=== PATIENT | female | born 1985 | race Two or more races ===

== ENCOUNTER 2024-11-08 08:57 | Emergency (ER) | payer MEDICAID, SELFPAY ==
[2024-11-08 08:58] VITALS: BMI 30.9
[2024-11-08 09:07] VITALS: BP 130/88; PULSE 99; RESP 16; TEMP 37; O2SAT 99; BMI 32.3
[2024-11-08 09:51] LABS: Collection Type, Urine Clean Catch
[2024-11-08 10:10] LABS: Basophils % (Auto) 0 % (0-2.5); Eosinophils # (Auto) 0.1 Thou/mm3 (0.0-0.5); Eosinophils % (Auto) 1 % (0-10); Hematocrit 38.6 % (36.0-46.0); Hemoglobin 12.7 g/dL (12.0-16.0); Immature Granulocytes % (Auto) 0 % (0-0); Immature Granulocytes Auto 0.02 Thou/mm3 (0.00-0.00); Lymphocytes # (Auto) 0.9 Thou/mm3 (1.0-4.8); Lymphocytes % (Auto) 17 % (10-50); Mean Corpuscular HGB Conc 32.9 g/dl (31.0-37.0); Mean Corpuscular Hemoglobin 27.7 pg (25.0-35.0); Mean Corpuscular Volume 84 fL (80-100); Monocytes # (Auto) 0.4 Thou/mm3 (0.0-0.8); Monocytes % (Auto) 8 % (0-12); Neutrophils # (Auto) 4.1 Thou/mm3 (1.8-7.7); Neutrophils % (Auto) 74 % (37-80); Nucleated Red Blood Cell % 0 /100 WBC (0); Platelet Count 225 Thou/mm3 (140-440); RDW Standard Deviation 41.8 fL (36.4-46.3); Red Blood Count 4.58 Miln/mm3 (4.00-5.20); White Blood Count 5.5 Thou/mm3 (3.6-11.0)
[2024-11-08 10:14] LABS: Alanine Aminotransferase 26 U/L (10-49); Albumin, Serum 4.8 gm/dL (3.5-5.0); Albumin/Globulin Ratio 1.8 (1.2-2.2); Alkaline Phosphatase 90 U/L (46-116); Anion Gap 4 (7-16); Aspartate Amino Transferase 39 U/L (0-34); BUN/Creatinine Ratio 11 Ratio (12-20); Bilirubin,Total 0.6 mg/dL (0.3-1.2); Blood Urea Nitrogen 9 mg/dL (9-23); Calcium 8.9 mg/dL (8.3-10.6); Calcium (Corrected) 8.9 mg/dL (8.5-10.1); Carbon Dioxide 27.7 mMol/L (20.0-31.0); Chloride 105 mMol/L (98-107); Creatinine (Component) 0.8 mg/dL (0.6-1.3); Estimated Creatinine Clearance 99.9 mL/min (>60); Globulin 2.7 gm/dL (2.3-3.5); Glucose 102 mg/dL (74-106); Lipase 42 U/L (12-53); Osmolality,Calculated 272 (275-295); Potassium 4.6 mMol/L (3.4-5.1); Sodium 137 mMol/L (136-145); Total Protein 7.5 gm/dL (5.7-8.2); eGFR > 60 See Note
[2024-11-08 10:16] LABS: HCG Qualitative,Urine Negative
[2024-11-08 10:45] LABS: Bacteria,Urine 2+; Bilirubin,Urine Negative (Negative); Blood,Urine 3+ (Negative); Color,Urine Yellow (Lt Yel-Yel); Culture Indicated,Urine Contaminated; Glucose, Urine Negative (Negative); Ketones,Urine Negative (Negative); Leukocyte Esterase,Urine Positive (Negative); Nitrite,Urine Positive (Negative); Protein,Urine 1+ (Neg - Trace); RBC,Urine 15 /hpf (0-3); Specific Gravity,Urine 1.025 (1.001-1.035); Squamous Epithelial Cell,Urine 51 /hpf (0-5); Urobilinogen,Urine Negative mg/dL (0.0-1.0); WBC,Urine 82 /hpf (0-5)
[2024-11-08 10:46] LABS: Clarity,Urine Turbid (Clear/Hazy)
--- NOTE | 2024-11-08 10:49 | EDNOTE_ITS ---
ED General RME/HPI General Chief complaint: Flu Like Symptoms Stated complaint: ESPINOZA/BODY ACHES/BACK AND ABD PAIN FOR 5 DAYS Time Seen by Provider: 11/08/24 09:03 Arrival date/time: 11/08/24 08:57 38-year-old female presents emergency department complains of headache, body aches, abdominal pain chills and bone pain ongoing for the last 4 days patient reports no vomiting Limitations: no limitations Related Data Previous Rx's ?Medication ?Instructions ?Recorded nitrofurantoin 100 mg PO BID #20 caps 03/18/20 monohydrate/macrocrystals 100 mg capsule (Macrobid) acetaminophen 500 mg tablet 1,000 mg (2 x 500 mg) PO QID PRN 02/09/21 (Tylenol Extra Strength) fever or pain #30 tabs ciprofloxacin HCl 500 mg tablet 500 mg PO BID 7 days #14 tabs 11/08/24 ibuprofen 800 mg tablet 800 mg PO TID PRN pain #30 tabs 11/08/24 Allergies Allergy/AdvReac Type Severity Reaction Status Date / Time No Known Allergies Allergy Unverified 11/08/24 09:02 Review of Systems Review of Systems Systems Reviewed: All systems reviewed, normal except as documented Constitutional Constitutional: Reports system reviewed and no additional complaints, except as documented, Reports body ache(s), Reports fatigue, Denies fever(s) and Reports headache(s) Eyes Eyes: Reports system reviewed and no additional complaints, except as documented and Denies blurry vision ENT Ears, Nose, Mouth, and Throat: Reports system reviewed and no additional complaints, except as documented, Reports headache(s), Reports nasal congestion and Reports nasal discharge Cardiovascular Cardiovascular: Reports system reviewed and no additional complaints, except as documented, Denies chest pain and Denies dyspnea Respiratory Respiratory: Reports system reviewed and no additional complaints, except as documented, Denies chest congestion, Denies cough and Denies dyspnea Gastrointestinal Gastrointestinal: Reports system reviewed and no additional complaints, except as documented, Reports abdominal pain, Denies loose stools, Reports nausea and Denies vomiting Integumentary/Breasts Skin/Breast: Reports system reviewed and no additional complaints, except as documented and Denies rash Neurologic Neurologic: Reports system reviewed and no additional complaints, except as documented, Reports as per HPI and Reports headache(s) Endocrine Endocrine: Reports fatigue Past Medical History Past Medical History CARDIAC: Negative Cardiac Disorders or Congestive Heart Failure RESPIRATORY: Negative Chronic Obstructive Pulmonary Disease (COPD) GASTROINTESTINAL: Negative Gastrointestinal Disorders, Hepatitis or Colorectal Cancer GENITOURINARY: Negative Genitourinary Disorders, Renal Disease or Prostate Cancer REPRODUCTIVE: Negative Breast Cancer or Testicular Cancer MUSCULOSKELETAL: Negative Musculoskeletal Disorders or Bone Cancer ENDOCRINE: Negative Endocrine Disorders, Diabetes Mellitus Type 1 or Diabetes Mellitus Type 2 HEMATOLOGIC: Negative Blood Disorders OTHER HISTORY: Positive Hospitalization; Negative Autoimmune Disease, Blood Transfusions, Blood Transfusion Reaction, Anesthesia Reactions, Organ Transplant, Chemotherapy, Radiation Therapy, Hyperbaric Therapy, Human Immunodeficiency Virus (HIV), Chicken Pox, Measles, Mumps, Rubella (Khmer Measles), Pertussis, Clostridium Difficile, Breast Cancer, Cervical Cancer, Colorectal Cancer, Lung Cancer, Ovarian Cancer, Prostate Cancer or Testicular Cancer Family History FAMILY HISTORY: Positive Family Cancer; Negative Family Psychiatric Problems, Family Respiratory Disorders, Family Cardiac Disorders, Family Gastrointestinal Problems, Family Surgery or Family Anesthesia Reaction Surgical History SURGICAL: Negative Cardiac Surgery, Endocrine Surgery, Ear Surgery, Section or Organ Transplant Social History SMOKING STATUS: Never smoker SUBSTANCE USE: does not use ED Exam General Limitations: Present no limitations General appearance: Present alert and in no apparent distress Head Head exam: Present atraumatic Eye Eye exam: Present normal appearance, PERRL and EOMI ENT ENT exam: Present normal exam, normal oropharynx and mucous membranes moist Neck Neck exam: Present normal inspection, full ROM and trachea midline Chest Chest inspection: Present normal inspection and symmetric chest wall rise Respiratory Respiratory exam: Present normal lung sounds bilaterally Cardiovascular Cardiovascular exam: Present regular rate, normal rhythm and normal heart sounds Abdominal Exam Abdominal exam: Present soft and normal bowel sounds; Absent distention, tenderness, guarding, rebound, rigidity, Lainez's sign or tenderness at McBurney's Point Abdominal tenderness: Absent RUQ or RLQ Extremities Exam Extremities exam: Present normal inspection and full ROM Back Exam Back exam: Present normal inspection and full ROM Neurological Exam Neurological exam: Present alert, oriented X3 and CN II-XII intact Psychiatric Psychiatric exam: Present normal affect and normal mood Skin Skin exam: Present warm, dry, intact and normal color Course Quality Measures none Orders Category Date Time Status Bedside Influenza A&B Antigen Test NOW Care 11/08/24 09:20 Completed CBC Stat Lab 11/08/24 09:40 Completed Comprehensive Metabolic Panel Stat Lab 11/08/24 09:40 Completed HCG Qualitative,Urine Stat Lab 11/08/24 09:35 Completed Lipase Stat Lab 11/08/24 09:40 Completed UA, C/S IF [Urinalysis, C/S if Indicated] Stat Lab 11/08/24 09:35 Completed Ibuprofen Tab [Motrin Tab] Med 11/08/24 10:50 Discontinued 800 mg PO X1 ONE Lidocaine 1% 20 ml [Xylocaine 1% 20 ML] Med 11/08/24 10:50 Discontinued 2.1 ml INFL X1 ONE cefTRIAXone [Rocephin] Med 11/08/24 10:50 Discontinued 1,000 mg IM X1 ONE Vital Signs Vital signs: Vital Signs Temperature 98.6 F 11/08/24 09:07 Pulse Rate 99 11/08/24 09:07 Respiratory Rate 16 11/08/24 09:07 Blood Pressure 130/88 H 11/08/24 09:07 Pulse Oximetry (%) 99 11/08/24 09:07 Oxygen Delivery Method Room Air 11/08/24 09:07 O2 saturation 99% room air within normal limits [facility] Patient data External records reviewed:: [facility] previous records Clinical information provided by:: patient Social determinants that could affect healthcare access:: none Patient has the following chronic illnesses:: None How is presenting disease/condition affected by chronic disease/condition?: no chronic disease Evaluation data The following diagnostics were reviewed and interpreted by me:: lab results and radiology exam(s) Lab and/or radiology exams considered but not ordered:: Labs radiology obtained Interpretation Summary: Reviewed by me Medications Medications considered but not ordered:: Given Medication administrations:: Medication Administration History Discontinued Medications Ceftriaxone Sodium (Ceftriaxone Sod Inj 1,000 Mg Vial) 1,000 mg IM X1 ONE Stop: 11/08/24 10:51 Last Admin: 11/08/24 11:03 Dose: 1,000 mg Documented By: JAYLIN Ibuprofen (Ibuprofen Tab 400 Mg Tablet) 800 mg PO X1 ONE Stop: 11/08/24 10:51 Last Admin: 11/08/24 11:03 Dose: 800 mg Documented By: Admin: 11/08/24 11:02 Dose: 400 mg Documented By: JAYLIN Lidocaine HCl (Lidocaine Hcl 1% 20 Ml Vial) 2.1 ml INFL X1 ONE Stop: 11/08/24 10:51 Last Admin: 11/08/24 11:04 Dose: 2.1 ml Documented By: JAYLIN Given Consultations Consultation(s) initiated? (list below): No Diagnosis Differential Diagnosis ED Complaint MDM: URI, viral illness, UTI, influenza Most likely diagnosis given after review of the tests above:: Viral illness Admission Indicated Admission indicated?: not indicated Explain why admission is indicated or not indicated:: No criteria Admission Request Was there a request for admission?: No Disposition Plan Disposition Plan: Discharge Discharge Attestation Discharge Attestation: The patient and all family members were given an opportunity to ask questions and understood the discharge instructions. Discharge instructions specifically effects, indications for sooner follow up or return to the emergency department, and the expected course of current diagnosis. Patient condition: Stable Medical Decision Making MDM Narrative MDM Narrative: 38-year-old female presents emergency department complains of headache, body aches, abdominal pain chills and bone pain ongoing for the last 4 days patient reports no vomiting On exam patient hemodynamically stable patient does not appear ill or toxic Lab work and CT scan obtained no acute emergent findings noted Patient discharged home in no distress to follow-up with primary care doctor in the next 24 to 48 hours and for any worsening symptoms to return to the ER immediately Differential Diagnosis Differential Diagnosis: URI, viral illness, UTI, influenza Medical Records Medical records reviewed: Yes I reviewed the patient's medical records. Lab Data Lab results reviewed: Yes I reviewed the patient's lab results. 11/08/24 09:40 11/08/24 09:40 Labs: Lab Results 11/08/24 11/08/24 Range/Units 09:35 09:40 WBC 5.5 (3.6-11.0) Thou/mm3 RBC 4.58 (4.00-5.20) Miln/mm3 Hgb 12.7 (12.0-16.0) g/dL Hct 38.6 (36.0-46.0) % MCV 84 (80-100) fL MCH 27.7 (25.0-35.0) pg MCHC 32.9 (31.0-37.0) g/dl RDW Std Deviation 41.8 (36.4-46.3) fL Plt Count 225 (140-440) Thou/mm3 Neut % (Auto) 74 (37-80) % Lymph % (Auto) 17 (10-50) % [place] % (Auto) 8 (0-12) % Eos % (Auto) 1 (0-10) % Baso % (Auto) 0 (0-2.5) % Neut # (Auto) 4.1 (1.8-7.7) Thou/mm3 Lymph # (Auto) 0.9 L (1.0-4.8) Thou/mm3 [place] # (Auto) 0.4 (0.0-0.8) Thou/mm3 Eos # (Auto) 0.1 (0.0-0.5) Thou/mm3 Baso # (Auto) 0.0 (0.0-0.2) Thou/mm3 Immature Gran # (Auto) 0.02 H (0.00-0.00) Thou/mm3 Absolute Nucleated RBC 0.00 (0.00-0.00) Thou/mm3 Immature Gran % 0 (0-0) % Nucleated RBC % 0 (0) /100 WBC Sodium 137 (136-145) mMol/L Potassium 4.6 (3.4-5.1) mMol/L Chloride 105 (98-107) mMol/L Carbon Dioxide 27.7 (20.0-31.0) mMol/L Anion Gap 4 L (7-16) BUN 9 (9-23) mg/dL Creatinine 0.8 (0.6-1.3) mg/dL Estim Creat Clear Calc 99.9 (>60) mL/min eGFR > 60 (60 - ) See Note BUN/Creatinine Ratio 11 L (12-20) Ratio Glucose 102 (74-106) mg/dL Calculated Osmolality 272 L (275-295) Calcium 8.9 (8.3-10.6) mg/dL Corrected Calcium 8.9 (8.5-10.1) mg/dL Total Bilirubin 0.6 (0.3-1.2) mg/dL AST 39 H (0-34) U/L ALT 26 (10-49) U/L Alkaline Phosphatase 90 (46-116) U/L Total Protein 7.5 (5.7-8.2) gm/dL Albumin 4.8 (3.5-5.0) gm/dL Globulin 2.7 (2.3-3.5) gm/dL Albumin/Globulin Ratio 1.8 (1.2-2.2) Lipase 42 (12-53) U/L Ur Collection Type Clean Catch Urine Color Yellow (Lt Yel-Yel) Urine Clarity Turbid A (Clear/Hazy) Urine pH 6.0 (5.0-7.0) Ur Specific Rex 1.025 (1.001-1.035) Urine Protein 1+ A (Neg - Trace) Urine Glucose (UA) Negative (Negative) Urine Ketones Negative (Negative) Urine Blood 3+ A (Negative) Urine Nitrite Positive (Negative) Urine Bilirubin Negative (Negative) Urine Urobilinogen (Auto) Negative (0.0-1.0) mg/dL Ur Leukocyte Esterase Positive (Negative) Urine RBC 15 H (0-3) /hpf Urine WBC 82 H (0-5) /hpf Ur Squamous Epith Cells 51 H (0-5) /hpf Urine Bacteria 2+ A (None) Ur Culture Indicated? Contaminated Urine HCG, Qual Negative Discharge Plan Plan Patient Disposition: HOME (Self Care) Disposition Comment: Stable Prescriptions/Referrals Prescriptions/Med Rec: New ibuprofen 800 mg tablet 800 mg PO TID PRN (Reason: pain) Qty: 30 0RF ciprofloxacin HCl 500 mg tablet 500 mg PO BID 7 Days Qty: 14 0RF No Action nitrofurantoin monohyd/m-cryst [Macrobid] 100 mg capsule 100 mg PO BID Qty: 20 0RF Rx Instructions: must administer with a meal/food acetaminophen [Tylenol Extra Strength] 500 mg tablet 1,000 mg PO QID PRN (Reason: fever or pain) Qty: 30 0RF Referrals: Rose Narayan MD [Primary Care Provider] - 11/10/24 Problem List Clinical Impression: UTI (urinary tract infection) Patient/Caregiver Discharge Instructions Education Materials: When to Use Antibiotics Additional Instructions: Please follow up with your primary care doctor in the next 24-48hrs for any worsening symptoms return here immediately Print Language: Nigerien Stand Alone Forms: Laverne Award Info., Work/School Release, Patient Portal Info Letter PA/MARLEN Supervising Physician PA/MARLEN Supervising Physician: Dr. Green
[2024-11-08 11:02] VITALS: TEMP 37
[2024-11-08] MEDS: IBUPROFEN TAB 400 MG TABLET 800 MG PO ×2 (11:02→11:03)
[2024-11-08] MEDS: cefTRIAXone SOD INJ 1,000 MG VIAL 1000 MG IM (11:03)
[2024-11-08] MEDS: LIDOCAINE HCL 1% 20 ML VIAL 2.1 ML INFL (11:04)
== END 2024-11-08 11:19 | disposition home or self-care (01) ==
PROVIDERS: Nurse Practitioner Primary Care; Emergency Provider Emergency Medicine; PCP Internal Medicine
DX: N39.0 Urinary tract infection, site not specified (principal)
CPT/HCPCS: 36415; 80053; 81001; 81025; 83690; 85025; 87400; 96372; 99283; J0696; J3490; A9270

== ENCOUNTER 2024-12-01 07:41 | Emergency (ER) | payer MEDICAID, SELFPAY ==
[2024-12-01 07:42] VITALS: BMI 31.8
[2024-12-01 08:20] VITALS: BP 132/84; PULSE 88; RESP 18; TEMP 36.7; O2SAT 99; BMI 34.0
--- NOTE | 2024-12-01 08:21 | XR_ITS ---
Examination: PA lateral chest 2 views TECHNIQUE: Upright PA lateral chest 2 views Exam date and time: December 01 2024 0842 hours INDICATIONS: Coughing beginning 2 weeks ago. FINDINGS: Normal heart size. Lungs are clear. The osseous structures are intact IMPRESSION: No active disease
--- NOTE | 2024-12-01 11:15 | EDNOTE_ITS ---
Upper Respiratory Inf. RME/HPI General Chief Complaint: Flu Like Symptoms Stated Complaint: COUGH, HEADACHE, BACK PAIN Time Seen by Provider: 12/01/24 07:49 Arrival date/time: 12/01/24 07:41 39-year-old female presents emergency department complains of cough, congestion, body aches and fever patient for symptoms ongoing for last few days there are no other associated symptoms or aggravating factors no other modifying factors, patient denies taking medication before coming to ER today Limitations: no limitations Related Data Previous Rx's ?Medication ?Instructions ?Recorded nitrofurantoin 100 mg PO BID #20 caps 03/18 monohydrate/macrocrystals 100 mg capsule (Macrobid) acetaminophen 500 mg tablet 1,000 mg (2 x 500 mg) PO Q ID PRN 02/09/21 (Tylenol Extra Strength) fever or pain #30 tabs ibuprofen 800 mg tablet 800 mg PO TID PRN pain #30 t abs 11/08/24 benzonatate 100 mg capsule 100 mg PO TID #14 caps 01/20 ibuprofen 600 mg tablet 600 mg PO Q6H #30 tabs 12/01 Allergies Allergy/AdvReac Type Severity Reaction Status Date / Time No Known Allergies Allergy Verified 12/01/24 07:46 Review of Systems Review of Systems Systems Reviewed: All systems reviewed, normal except as documented Constitutional Constitutional: Reports system reviewed and no additional complaints, except as documented, Reports body ache(s), Reports chills, Reports fever(s) and Reports headache(s) Eyes Eyes: Reports system reviewed and no additional complaints, except as documented and Denies blurry vision ENT Ears, Nose, Mouth, and Throat: Reports system reviewed and no additional complaints, except as documented, Reports headache(s), Denies nasal congestion and Reports nasal discharge Cardiovascular Cardiovascular: Reports system reviewed and no additional complaints, except as documented, Denies chest pain and Denies dyspnea Respiratory Respiratory: Reports system reviewed and no additional complaints, except as documented, Denies chest congestion, Denies cough and Denies dyspnea Gastrointestinal Gastrointestinal: Reports system reviewed and no additional complaints, except as documented and Denies abdominal pain Integumentary/Breasts Skin/Breast: Reports system reviewed and no additional complaints, except as documented and Denies rash Neurologic Neurologic: Reports system reviewed and no additional complaints, except as documented, Reports as per HPI and Reports headache(s) Past Medical History Past Medical History NEUROLOGIC: Negative Neurological Disorders CARDIAC: Negative Cardiac Disorders or Congestive Heart Failure RESPIRATORY: Negative Chronic Obstructive Pulmonary Disease (COPD) GASTROINTESTINAL: Negative Gastrointestinal Disorders, Hepatitis or Colorectal Cancer GENITOURINARY: Negative Genitourinary Disorders, Renal Disease or Prostate Cancer REPRODUCTIVE: Negative Breast Cancer or Testicular Cancer MUSCULOSKELETAL: Negative Musculoskeletal Disorders or Bone Cancer ENDOCRINE: Negative Endocrine Disorders, Diabetes Mellitus Type 1 or Diabetes Mellitus Type 2 HEMATOLOGIC: Negative Blood Disorders OTHER HISTORY: Positive Hospitalization; Negative Autoimmune Disease, Blood Transfusions, Blood Transfusion Reaction, Anesthesia Reactions, Organ Transplant, Chemotherapy, Radiation Therapy, Hyperbaric Therapy, Human Immunodeficiency Virus (HIV), Chicken Pox, Measles, Mumps, Rubella (Cymro Measles), Pertussis, Clostridium Difficile, Breast Cancer, Cervical Cancer, Colorectal Cancer, Lung Cancer, Ovarian Cancer, Prostate Cancer or Testicular Cancer Family History FAMILY HISTORY: Positive Family Cancer; Negative Family Psychiatric Problems, Family Respiratory Disorders, Family Cardiac Disorders, Family Gastrointestinal Problems, Family Surgery or Family Anesthesia Reaction Surgical History SURGICAL: Negative Cardiac Surgery, Endocrine Surgery, Ear Surgery, Section or Organ Transplant Social History SMOKING STATUS: Never smoker SUBSTANCE USE: does not use ED Exam General Limitations: Present no limitations General appearance: Present alert and in no apparent distress Head Head exam: Present atraumatic, normocephalic and normal inspection Eye Eye exam: Present normal appearance, PERRL and EOMI; Absent conjunctival injection ENT ENT exam: Present normal exam, normal oropharynx and mucous membranes moist Neck Neck exam: Present normal inspection, full ROM and trachea midline Chest Chest inspection: Present normal inspection and symmetric chest wall rise Respiratory Respiratory exam: Present normal lung sounds bilaterally; Absent respiratory distress Cardiovascular Cardiovascular exam: Present regular rate, normal rhythm and normal heart sounds Abdominal Exam Abdominal exam: Present soft and normal bowel sounds; Absent distention, tenderness, guarding, rebound or rigidity Abdominal tenderness: Absent RLQ Extremities Exam Extremities exam: Present normal inspection and full ROM Back Exam Back exam: Present normal inspection and full ROM Neurological Exam Neurological exam: Present alert, oriented X3 and CN II-XII intact Psychiatric Psychiatric exam: Present normal affect and normal mood Skin Skin exam: Present warm, dry, intact and normal color Course Quality Measures none Orders Category Date Time Status Bedside Influenza A&B Antigen Test NOW Care 12/01/24 08:21 Completed XR chest 2V Stat Exams 12/01/24 08:21 Completed Vital Signs Vital signs: Vital Signs Temperature 98.1 F 12/01/24 08:20 Pulse Rate 88 12/01/24 08:20 Respiratory Rate 18 12/01/24 08:20 Blood Pressure 132/84 H 12/01/24 08:20 Pulse Oximetry (%) 99 12/01/24 08:20 Oxygen Delivery Method Room Air 12/01/24 08:20 O2 saturation 99% room air within normal limits Upper Respiratory Infection MDM Narrative MDM Narrative:: 39-year-old female presents emergency department complains of cough, congestion, body aches and fever patient for symptoms ongoing for last few days there are no other associated symptoms or aggravating factors no other modifying factors, patient denies taking medication before coming to ER today On exam patient does not appear ill or toxic patient reports no significant medical problems patient reports not Patient symptoms highly consistent with viral illness I suspect patient has flu Patient checked for influenza came back negative Chest x-ray obtained no acute medical trace noted Symptoms highly consistent with viral illness Patient discharged home in no distress to follow-up with primary care doctor in the next 24 to 48 hours and for any worsening symptoms to return to the ER immediately Patient data External records reviewed:: [facility] previous records Clinical information provided by:: patient Social determinants that could affect healthcare access:: none Patient has the following chronic illnesses:: None How is presenting disease/condition affected by chronic disease/condition?: no chronic disease Evaluation data The following diagnostics were reviewed and interpreted by me:: lab results and radiology exam(s) Lab and/or radiology exams considered but not ordered:: Labs radiology obtain Interpretation Summary: Reviewed by me Medications / Prescriptions Medications or Prescriptions considered but not ordered:: Given Medication administrations:: Given Consultations Consultation(s) initiated? (list below): No Diagnosis Upper Respiratory Differential Diagnosis: upper respiratory infection, sinusitis, viral infection and bronchitis Most likely diagnosis given after review of the tests above:: URI Admission Indicated Admission indicated?: not indicated Admission Request Was there a request for admission?: No Disposition Plan Disposition Plan: Discharge Discharge Attestation Discharge Attestation: The patient and all family members were given an opportunity to ask questions and understood the discharge instructions. Discharge instructions specifically effects, indications for sooner follow up or return to the emergency department, and the expected course of current diagnosis. Patient condition: Stable Discharge Plan Plan Patient Disposition: HOME (Self Care) Disposition Comment: Stable Prescriptions/Referrals Prescriptions/Med Rec: New benzonatate 100 mg capsule 100 mg PO TID Qty: 14 0RF ibuprofen 600 mg tablet 600 mg PO Q6H Qty: 30 0RF No Action nitrofurantoin monohyd/m-cryst [Macrobid] 100 mg capsule 100 mg PO BID Qty: 20 0RF Rx Instructions: must administer with a meal/food acetaminophen [Tylenol Extra Strength] 500 mg tablet 1,000 mg PO QID PRN (Reason: fever or pain) Qty: 30 0RF ibuprofen 800 mg tablet 800 mg PO TID PRN (Reason: pain) Qty: 30 0RF Referrals: Rose Narayan MD [Primary Care Provider] - 12/02/24 Problem List Clinical Impression: URI (upper respiratory infection) Patient/Caregiver Discharge Instructions Education Materials: ED URI, Viral, No Abx (Adult) Additional Instructions: Please follow up with your primary care doctor in the next 24-48hrs for any worsening symptoms return here immediately Print Language: South African Stand Alone Forms: Laverne Award Info., Patient Portal Info Letter PA/CAUSTIC PURIFICATION OPERATOR Supervising Physician PA/CAUSTIC PURIFICATION OPERATOR Supervising Physician: Dr. Sargent
== END 2024-12-01 12:12 | disposition home or self-care (01) ==
PROVIDERS: Emergency Provider Emergency Medicine; PCP Internal Medicine
DX: J06.9 Acute upper respiratory infection, unspecified (principal)
CPT/HCPCS: 71046; 87400; 99283

== ENCOUNTER → 2025-02-11 | Outpatient (CLI) | payer MEDICAID, SELFPAY ==
--- NOTE | 2025-02-11 15:00 | XR_ITS ---
Examination: Screening digital mammography, bilateral Computer aided detection 3-D breast Tomosynthesis, bilateral Date and time of exam: February 11, 2025 1547 hours No priors Indication: Screening Technique: Nonmagnified MLO, CC views of the breasts to been obtained, reconstructed from 3-D Tomosynthesis images. R2 computer aided detection program utilized for evaluation of suspicious masses and/or abnormal calcifications. 3-D Tomosynthesis images obtained. Findings: The breasts are heterogeneously dense, which may obscure small masses 10 mm focal asymmetry upper inner right breast Benign calcifications Impression: BI-RADS Category 0: Incomplete: Need additional imaging evaluation Recommend follow-up spot tomographic views 10 mm focal asymmetry upper inner right breast, bilateral breast sonography to complete the workup
== END | disposition home or self-care (01) ==
PROVIDERS: PCP Nurse Practitioner Primary Care; Referring Provider Nurse Practitioner Primary Care; Visit Provider Nurse Practitioner Primary Care
DX: Z12.31 Encounter for screening mammogram for malignant neoplasm of breast (principal); R92.8 Other abnormal and inconclusive findings on diagnostic imaging of breast; N64.89 Other specified disorders of breast
CPT/HCPCS: 77063; 77067

== ENCOUNTER 2025-04-11 07:43 | Emergency (ER) | payer MEDICAID, SELFPAY ==
--- NOTE | 2025-04-11 | XR_ITS ---
Exam: MRI knee without contrast, right complete Date and time of exam: April 11, 2025 12:31 PM Indications: Injury to the knee 2 weeks ago knee pain Technique: Multiple axial, coronal, and sagittal sections on the knee have been obtained. T2-Weighted sagittal, fat-suppressed images, TR 3,500, TE 62, T2 weighted coronal fat-saturated images, TR 3,500, TE 62 Proton density sagittal sections, TR 1800, TE 31. T-1 weighted coronal images, TR 524, TE 13.0 Findings: Medial meniscus anterior horn intact Medial meniscus, body intact Posterior horn medial meniscus intact Lateral meniscus anterior horn is intact Lateral meniscus, body is intact Posterior horn lateral meniscus is intact Anterior cruciate ligament high grade sprain Posterior cruciate ligament appears intact. Knee effusion is mild Quadriceps and patellar tendons appear intact. There is no evidence of tendinosis. Inflammatory change or fracture of Hoffa's fat pad is not seen. Medial patellar facet demonstrates mild thinning. Lateral patellar facet cartilage demonstrates mild thinning. Trochlear cartilage demonstrates mild thinning. Marrow signal adequate Medial collateral ligament appears intact. No meniscocapsular separation is seen. Illiotibial band and fibular collateral ligament are intact. Biceps femoris tendons appear intact. Medial femoral condylar articular cartilage demonstrates mild thinning. Lateral femoral condylar articular cartilage demonstrates mild thinning. Tibial plateau cartilage demonstrates mild thinning. Impression: High grade sprain anterior cruciate ligament
[2025-04-11 08:27] VITALS: BP 157/92; PULSE 72; RESP 18; TEMP 37.1; O2SAT 98; BMI 31.8
--- NOTE | 2025-04-11 09:11 | PD.EDLOWEX ---
Lower Extremity Injury RME/HPI General Chief Complaint: Extremity Injury, Lower Stated Complaint: Right knee pain X 2weeks Time Seen by Provider: 04/11/25 07:57 Source: patient Arrival date/time: 04/11/25 07:43 Limitations: language barrier RME / HPI RME / HPI Narrative: 39-year-old female presents for evaluation of right knee pain x 2 weeks. She reports spontaneous onset of sharp knee pain that started in her medial right knee while walking and radiates to her lateral and posterior knee. She reports sharp pains will occur at rest. She denies prior trauma and surgery to her right knee. Denies history of similar symptoms. Denies chest pain, fever, shortness of breath, cough, swelling, skin changes. MD complaint: knee injury Onset (ago): week(s) Type of Injury: unknown Place: home Exacerbating factors: weight bearing and movement Context: walking Other symptoms: none Related Data Previous Rx's ?Medication ?Instructions ?Recorded nitrofurantoin 100 mg PO BID #20 caps 03/18/20 monohydrate/macrocrystals 100 mg capsule (Macrobid) acetaminophen 500 mg tablet 1,000 mg (2 x 500 mg) PO QID PRN 02/09/21 (Tylenol Extra Strength) fever or pain #30 tabs ibuprofen 800 mg tablet 800 mg PO TID PRN pain #30 tabs 11/08/24 benzonatate 100 mg capsule 100 mg PO TID #14 caps 12/01/24 ibuprofen 600 mg tablet 600 mg PO Q6H #30 tabs 12/01/24 ibuprofen 800 mg tablet 800 mg PO Q8H PRN pain #30 tabs 04/11/25 Allergies Allergy/AdvReac Type Severity Reaction Status Date / Time No Known Allergies Allergy Verified 04/11/25 07:48 Review of Systems Constitutional Constitutional: Denies chills, Denies fever(s), Denies headache(s) and Denies weakness Eyes Eyes: Denies blurry vision and Denies change in vision ENT Ears, Nose, Mouth, and Throat: Denies headache(s), Denies neck pain and Denies vertigo Cardiovascular Cardiovascular: Denies chest pain, Denies chest pain at rest, Denies dyspnea and Denies leg edema Respiratory Respiratory: Denies cough, Denies dyspnea and Denies wheezing Gastrointestinal Gastrointestinal: Denies abdominal pain, Denies nausea and Denies vomiting Genitourinary Genitourinary: Denies abnormal vaginal bleeding and Denies dysuria Musculoskeletal Musculoskeletal: Reports abnormal gait, Reports arthralgias (right knee ), Denies back pain, Denies deformity, Denies joint swelling, Reports limited range of motion, Denies muscle cramps, Denies muscle weakness, Denies myalgias, Denies neck pain, Denies numbness, Denies stiffness and Denies tingling Integumentary/Breasts Skin/Breast: Denies lesions, Denies new lesions and Denies wounds Neurologic Neurologic: Reports abnormal gait, Denies headache(s), Denies numbness, Denies tingling, Denies vertigo and Denies weakness Allergic/Immunologic Allergic/Immunologic: Denies wheezing Past Medical History Past Medical History NEUROLOGIC: Negative Neurological Disorders CARDIAC: Negative Cardiac Disorders or Congestive Heart Failure RESPIRATORY: Negative Respiratory Disorders or Chronic Obstructive Pulmonary Disease (COPD) GASTROINTESTINAL: Negative Gastrointestinal Disorders, Hepatitis or Colorectal Cancer GENITOURINARY: Negative Genitourinary Disorders, Renal Disease or Prostate Cancer REPRODUCTIVE: Negative Breast Cancer or Testicular Cancer MUSCULOSKELETAL: Negative Musculoskeletal Disorders or Bone Cancer ENDOCRINE: Negative Endocrine Disorders, Diabetes Mellitus Type 1 or Diabetes Mellitus Type 2 HEMATOLOGIC: Negative Blood Disorders OTHER HISTORY: Positive Hospitalization; Negative Autoimmune Disease, Blood Transfusions, Blood Transfusion Reaction, Anesthesia Reactions, Organ Transplant, Chemotherapy, Radiation Therapy, Hyperbaric Therapy, Human Immunodeficiency Virus (HIV), Chicken Pox, Measles, Mumps, Rubella ([place] Measles), Pertussis, Clostridium Difficile, Breast Cancer, Cervical Cancer, Colorectal Cancer, Lung Cancer, Ovarian Cancer, Prostate Cancer or Testicular Cancer Family History FAMILY HISTORY: Positive Family Cancer; Negative Family Psychiatric Problems, Family Respiratory Disorders, Family Cardiac Disorders, Family Gastrointestinal Problems, Family Surgery or Family Anesthesia Reaction Surgical History SURGICAL: Negative Cardiac Surgery, Endocrine Surgery, Ear Surgery, Section or Organ Transplant Social History SMOKING STATUS: Never smoker SUBSTANCE USE: does not use ED Exam General Limitations: Present language barrier General appearance: Present alert and in no apparent distress Head Head exam: Present atraumatic and normocephalic Eye Eye exam: Present normal appearance and EOMI ENT ENT exam: Present normal oropharynx and mucous membranes moist Neck Neck exam: Present normal inspection and full ROM Chest Chest inspection: Present normal inspection and symmetric chest wall rise Respiratory Respiratory exam: Absent respiratory distress or wheezes Cardiovascular Cardiovascular exam: Present regular rate and +S1 Abdominal Exam Abdominal exam: Present soft; Absent distention Rectal Exam Rectal exam: Present deferred Extremities Exam Extremities exam: Present normal inspection and normal capillary refill; Absent joint swelling or calf tenderness Expanded Lower Extremity Exam Upper leg exam: Present normal inspection Knee exam: Present tenderness (tenderness to palpation anterior right knee), laxity with varus and knee extension intact; Absent swelling, ecchymosis, deformity, crepitus or anterior drawer sign Lower leg exam: Present normal inspection and full ROM; Absent tenderness or swelling Ankle exam: Present normal inspection and full ROM; Absent tenderness Foot/toe exam: Present normal inspection; Absent tenderness Neurovascular/Tendon exam: Present normal capillary refill Gait: observed and normal Back Exam Back exam: Present normal inspection and full ROM; Absent tenderness, paraspinal tenderness or vertebral tenderness Neurological Exam Neurological exam: Present alert and normal gait Psychiatric Psychiatric exam: Present normal affect Skin Skin exam: Present warm, dry and intact Course Quality Measures none Orders Category Date Time Status MRI Screening NOW Care 04/11/25 08:48 Completed MR knee RT wo con Stat Exams 04/11/25 Completed Ketorolac Inj [Toradol Inj] Med 04/11/25 08:48 Discontinued 30 mg IM X1 ONE Vital Signs Vital signs: Vital Signs Temperature 98.7 F 04/11/25 08:27 Pulse Rate 72 04/11/25 08:27 Respiratory Rate 18 04/11/25 08:27 Blood Pressure 157/92 H 04/11/25 08:27 Pulse Oximetry (%) 98 04/11/25 08:27 Oxygen Delivery Method Room Air 04/11/25 08:27 Ox 98% on room air, within normal limits. Extremity Injury, Lower MDM Narrative MDM Narrative:: 3-year-old female presented for evaluation of right knee pain at rest x 2 weeks. Patient reported onset while walking at home. Vital signs reassuring. Tenderness to palpation on exam. MRI was ordered in the emergency department today which showed a moderate ACL strain without tear. Less concern for bony fracture, meniscus injury, ligamentous tear at this time. Patient's pain was improved in the department following Toradol shot. Ultimately patient was discharged home with plan to follow-up with outpatient orthopedics for further recommendation and treatment. Patient was stable at time of discharge. Patient data External records reviewed:: [facility] previous records Clinical information provided by:: patient Social determinants that could affect healthcare access:: none Patient has the following chronic illnesses:: None reported. How is presenting disease/condition affected by chronic disease/condition?: no chronic disease Evaluation data The following diagnostics were reviewed and interpreted by me:: radiology exam(s) Lab and/or radiology exams considered but not ordered:: MRI ordered. Interpretation Summary: MRI significant for moderate ACL sprain right knee. Medications / Prescriptions Medications or Prescriptions considered but not ordered:: Rx given. Medication administrations:: Medication Administration History Discontinued Medications Ketorolac Tromethamine (Ketorolac Inj 60 Mg/2 Ml Vial) 30 mg IM X1 ONE Stop: 04/11/25 08:49 Last Admin: 04/11/25 09:20 Dose: 30 mg Documented By: DB Rx given. Consultations Consultation(s) initiated? (list below): No Diagnosis Extremity Injury, Lower Differential Diagnosis: acute internal derangement of knee and other (Meniscus injury, ACL tear, ACL strain, MCL strain.) Most likely diagnosis given after review of the tests above:: Right ACL strain. Admission Indicated Admission indicated?: not indicated Admission Request Was there a request for admission?: No Disposition Plan Disposition Plan: Discharge Discharge Attestation Discharge Attestation: The patient and all family members were given an opportunity to ask questions and understood the discharge instructions. Discharge instructions specifically effects, indications for sooner follow up or return to the emergency department, and the expected course of current diagnosis. Patient condition: Stable Discharge Plan Plan Patient Disposition: HOME (Self Care) Discharge Disposition comment: stable Prescriptions/Referrals Prescriptions/Med Rec: New ibuprofen 800 mg tablet 800 mg PO Q8H PRN (Reason: pain) Qty: 30 0RF No Action nitrofurantoin monohyd/m-cryst [Macrobid] 100 mg capsule 100 mg PO BID Qty: 20 0RF Rx Instructions: must administer with a meal/food acetaminophen [Tylenol Extra Strength] 500 mg tablet 1,000 mg PO QID PRN (Reason: fever or pain) Qty: 30 0RF ibuprofen 800 mg tablet 800 mg PO TID PRN (Reason: pain) Qty: 30 0RF benzonatate 100 mg capsule 100 mg PO TID Qty: 14 0RF ibuprofen 600 mg tablet 600 mg PO Q6H Qty: 30 0RF Referrals: Marly ([facility]),Barbara, RECEIVABLE CLERK-C [Primary Care Provider] - In 1 week Problem List Clinical Impression: ACL sprain Patient/Caregiver Discharge Instructions Education Materials: ED Knee Sprain, ED ACL and PCL (Knee Ligament Injury) Additional Instructions: Follow-up with primary care within next week for reevaluation of high-grade ACL sprain. Consider outpatient physical therapy. Consider outpatient orthopedic surgery referral. Take Tylenol or ibuprofen as needed every 6 hours for pain. Return to the ED if your symptoms worsen or change. Dr. Ancelmo Sheets [phone] Print Language: Monegasque Stand Alone Forms: Laverne Award Info., Patient Portal Info Letter PA/RECEIVABLE CLERK Supervising Physician PA/RECEIVABLE CLERK Supervising Physician: Dr. Street
[2025-04-11] MEDS: KETOROLAC INJ 60 MG/2 ML VIAL 30 MG IM (09:20)
== END 2025-04-11 15:31 | disposition home or self-care (01) ==
PROVIDERS: Emergency Provider Emergency Medicine; PCP Nurse Practitioner Primary Care
DX: S83.511A Sprain of anterior cruciate ligament of right knee, initial encounter (principal); X58.XXXA Exposure to other specified factors, initial encounter; Y93.01 Activity, walking, marching and hiking
CPT/HCPCS: 73721; 96372; 99284; J1885

== ENCOUNTER 2025-04-26 09:32 | Emergency (ER) | payer MEDICAID, SELFPAY ==
[2025-04-26 10:29] VITALS: BP 130/84; PULSE 78; RESP 16; TEMP 36.9; O2SAT 99; BMI 33.4
--- NOTE | 2025-04-26 10:34 | XR_ITS ---
Examination: Lumbar spine 2 views Technique one AP lateral lumbar spine 2 views Date and time: April 26, 2025, 10:40 AM Indications: Low back pain this week. Findings: Satisfactory alignment lumbar vertebral bodies No lumbar fracture Mild disc narrowing L5-S1 No spondylolisthesis Impression: Mild disc narrowing L5-S1
[2025-04-26 11:44] LABS: Collection Type, Urine Voided
--- NOTE | 2025-04-26 12:04 | PD.EDBACK ---
ED Back Injury Pain RME/HPI General Chief Complaint: Back Pain/Injury Stated Complaint: lower back pain since yest. Time Seen by Provider: 04/26/25 09:38 Arrival date/time: 04/26/25 09:32 This is a case of a 39-year-old female who came in in the emergency room due to lower back pain for 2 days patient denies any injury or trauma denies any numbness weakness tingling sensation or incontinence to urine or stool denies denies any urinary Limitations: no limitations Related Data Previous Rx's ?Medication ?Instructions ?Recorded nitrofurantoin 100 mg PO BID #20 caps 03/18/20 monohydrate/macrocrystals 100 mg capsule (Macrobid) acetaminophen 500 mg tablet 1,000 mg (2 x 500 mg) PO QID PRN 02/09/21 (Tylenol Extra Strength) fever or pain #30 tabs ibuprofen 800 mg tablet 800 mg PO TID PRN pain #30 tabs 11/08/24 benzonatate 100 mg capsule 100 mg PO TID #14 caps 12/01/24 ibuprofen 600 mg tablet 600 mg PO Q6H #30 tabs 12/01/24 ibuprofen 800 mg tablet 800 mg PO Q8H PRN pain #30 tabs 04/11/25 cephalexin 500 mg capsule 500 mg PO QID 10 days #40 caps 04/26/25 cyclobenzaprine 10 mg tablet 10 mg PO BID PRN muscle spasm #10 04/26/25 tabs ibuprofen 800 mg tablet 800 mg PO Q8H PRN pain #20 tabs 04/26/25 Allergies Allergy/AdvReac Type Severity Reaction Status Date / Time No Known Allergies Allergy Verified 04/26/25 09:35 Review of Systems Review of Systems Systems Reviewed: All systems reviewed, normal except as documented Constitutional Constitutional: Reports system reviewed and no additional complaints, except as documented and Reports as per HPI ENT Ears, Nose, Mouth, and Throat: Denies neck pain Cardiovascular Cardiovascular: Reports system reviewed and no additional complaints, except as documented and Reports as per HPI Respiratory Respiratory: Reports system reviewed and no additional complaints, except as documented and Reports as per HPI Gastrointestinal Gastrointestinal: Reports system reviewed and no additional complaints, except as documented and Reports as per HPI Musculoskeletal Musculoskeletal: Reports system reviewed and no additional complaints, except as documented, Reports as per HPI, Denies abnormal gait, Denies arthralgias, Denies atrophy, Reports back pain, Denies deformity, Denies joint swelling, Denies limited range of motion, Denies loss of height, Denies muscle cramps, Denies muscle weakness, Denies myalgias, Denies neck pain, Denies numbness, Denies radiating pain into limb, Denies stiffness and Denies tingling Neurologic Neurologic: Reports system reviewed and no additional complaints, except as documented, Reports as per HPI, Denies abnormal gait, Denies numbness and Denies tingling Past Medical History Past Medical History NEUROLOGIC: Negative Neurological Disorders CARDIAC: Negative Cardiac Disorders or Congestive Heart Failure RESPIRATORY: Negative Chronic Obstructive Pulmonary Disease (COPD) GASTROINTESTINAL: Negative Gastrointestinal Disorders, Hepatitis or Colorectal Cancer GENITOURINARY: Negative Genitourinary Disorders, Renal Disease or Prostate Cancer REPRODUCTIVE: Negative Breast Cancer or Testicular Cancer MUSCULOSKELETAL: Negative Musculoskeletal Disorders or Bone Cancer ENDOCRINE: Negative Endocrine Disorders, Diabetes Mellitus Type 1 or Diabetes Mellitus Type 2 HEMATOLOGIC: Negative Blood Disorders OTHER HISTORY: Positive Hospitalization; Negative Autoimmune Disease, Blood Transfusions, Blood Transfusion Reaction, Anesthesia Reactions, Organ Transplant, Chemotherapy, Radiation Therapy, Hyperbaric Therapy, Human Immunodeficiency Virus (HIV), Chicken Pox, Measles, Mumps, Rubella ([place] Measles), Pertussis, Clostridium Difficile, Breast Cancer, Cervical Cancer, Colorectal Cancer, Lung Cancer, Ovarian Cancer, Prostate Cancer or Testicular Cancer Family History FAMILY HISTORY: Positive Family Cancer; Negative Family Psychiatric Problems, Family Respiratory Disorders, Family Cardiac Disorders, Family Gastrointestinal Problems, Family Surgery or Family Anesthesia Reaction Surgical History SURGICAL: Negative Cardiac Surgery, Endocrine Surgery, Ear Surgery, Section or Organ Transplant Social History SMOKING STATUS: Never smoker SUBSTANCE USE: does not use ED Exam General Limitations: Present no limitations General appearance: Present alert and in no apparent distress Head Head exam: Present atraumatic, normocephalic and normal inspection Eye Eye exam: Present normal appearance, PERRL and EOMI ENT ENT exam: Present normal exam, normal oropharynx and mucous membranes moist Neck Neck exam: Present normal inspection, full ROM and trachea midline; Absent tenderness, meningismus, lymphadenopathy or thyromegaly Chest Chest inspection: Present normal inspection and symmetric chest wall rise; Absent tenderness, rash or abscess Respiratory Respiratory exam: Present normal lung sounds bilaterally; Absent respiratory distress, wheezes, stridor, accessory muscle use or prolonged expiratory phase Cardiovascular Cardiovascular exam: Present regular rate, normal rhythm and normal heart sounds; Absent bradycardia, tachycardia, irregular rhythm or systolic murmur Abdominal Exam Abdominal exam: Present soft and normal bowel sounds; Absent distention, tenderness, guarding, rebound, rigidity, diminished bowel sounds or hyperactive bowel sounds Extremities Exam Extremities exam: Present normal inspection, full ROM and normal capillary refill; Absent tenderness Back Exam Back exam: Present normal inspection, full ROM, tenderness (Mild tenderness on the L1-L5 no swelling no crepitation no deformity no CVA tenderness mild muscle spasm straight leg exam is negative steady gait ROM intact neurovascular intact) and muscle spasm; Absent CVA tenderness (R), CVA tenderness (L), paraspinal tenderness, vertebral tenderness, rashes, sciatic notch tenderness (R), sciatic notch tenderness (L), straight leg raise (R) or straight leg raise (L) Neurological Exam Neurological exam: Present alert, oriented X3, CN II-XII intact, normal gait and reflexes normal; Absent motor sensory deficit Psychiatric Psychiatric exam: Present normal affect and normal mood Skin Skin exam: Present warm, dry, intact and normal color Course Quality Measures none Orders Category Date Time Status XR lumbar spine 2-3V Stat Exams 04/26/25 10:34 Completed HCG Qualitative,Urine Stat Lab 04/26/25 11:18 Completed Urinalysis Stat Lab 04/26/25 11:18 Completed Dexamethasone Inj [Decadron Inj] Med 04/26/25 13:22 Discontinued 10 mg IM X1 ONE Ketorolac Inj [Toradol Inj] Med 04/26/25 13:22 Discontinued 30 mg IM X1 ONE Vital Signs Vital signs: Vital Signs Temperature 98.5 F 04/26/25 10:29 Pulse Rate 78 04/26/25 10:29 Respiratory Rate 16 04/26/25 10:29 Blood Pressure 130/84 04/26/25 10:29 Pulse Oximetry (%) 99 04/26/25 10:29 Oxygen Delivery Method Room Air 04/26/25 10:29 Oxygen saturation 99% in room air normal Back Pain / Injury MDM Narrative MDM Narrative:: This is a case of a 39-year-old female who came in in the emergency room due to lower back pain for 2 days patient denies any injury or trauma denies any numbness weakness tingling sensation or incontinence to urine or stool denies denies any urinary physical examination patient is awake alert oriented not in distress nontoxic looking abdominal exam is benign nonsurgical no guarding no tenderness no rebound no rigidity mild tenderness on L1 L5 no crepitation no deformity steady gait leg raise exam is normal no paraspinal no paravertebral tenderness no swelling noted no signs and symptoms of cauda equina x-ray showed DDD lumbar patient also noted to have positive urinary tract infection patient was given Toradol and dexamethasone which improved and resolved the pain patient was advised to follow-up with PCP to be referred to neurosurgeon for further evaluation and treatment of possible MRI to rule out herniated disc for any worsening symptoms recurrence of the symptoms or any emergent concern return to the emergency room immediately or call 911 patient will continue and finish the course antibiotic keep hydrated is advised Patient was discharged with comfortable condition walking with stable gait. Patient verbalized no further complains explained diagnosis and answered patient question. Patient is comfortable with the proposed management plan including the need to follow up with his/her primary care physician and any specialist if applicable Discussed patient for any urgent condition or worsening sx, He/She needed to go to emergency room immediately or call 911. Patient acknowledge the responsibility to follow up as instructed and to monitor her/his symptoms. For any persistence of the symptoms for more than 3-5 days return precaution advised. Discussed the result of the test and was given printed discharge instruction Patient data External records reviewed:: [facility] previous records Clinical information provided by:: patient Social determinants that could affect healthcare access:: none Patient has the following chronic illnesses:: None How is presenting disease/condition affected by chronic disease/condition?: no chronic disease Evaluation data The following diagnostics were reviewed and interpreted by me:: lab results and radiology exam(s) Lab and/or radiology exams considered but not ordered:: Reviewed Interpretation Summary: Reviewed Medications / Prescriptions Medications or Prescriptions considered but not ordered:: Given Medication administrations:: Medication Administration History Discontinued Medications Dexamethasone Sodium Phosphate (Dexamethasone Sod Phos Inj 10 Mg/Ml Vial) 10 mg IM X1 ONE Stop: 04/26/25 13:23 Ketorolac Tromethamine (Ketorolac Inj 60 Mg/2 Ml Vial) 30 mg IM X1 ONE Stop: 04/26/25 13:23 Given Consultations Consultation(s) initiated? (list below): No Diagnosis Differential diagnosis back pain/injury: sciatica, pyelonephritis and thoracic back pain Most likely diagnosis given after review of the tests above:: Urinary tract infection DDD lumbar Admission Indicated Admission indicated?: not indicated Explain why admission is indicated or not indicated:: Not indicated Admission Request Was there a request for admission?: No Admission Attestation Admission request attestation: Not indicated Disposition Plan Disposition Plan: Discharge Discharge Attestation Discharge Attestation: The patient and all family members were given an opportunity to ask questions and understood the discharge instructions. Discharge instructions specifically effects, indications for sooner follow up or return to the emergency department, and the expected course of current diagnosis. Patient condition: Stable Discharge Plan Plan Patient Disposition: HOME (Self Care) Patient condition on transfer: Stable Prescriptions/Referrals Prescriptions/Med Rec: New cephalexin 500 mg capsule 500 mg PO QID 10 Days Qty: 40 0RF ibuprofen 800 mg tablet 800 mg PO Q8H PRN (Reason: pain) Qty: 20 0RF cyclobenzaprine 10 mg tablet 10 mg PO BID PRN (Reason: muscle spasm) Qty: 10 0RF No Action nitrofurantoin monohyd/m-cryst [Macrobid] 100 mg capsule 100 mg PO BID Qty: 20 0RF Rx Instructions: must administer with a meal/food acetaminophen [Tylenol Extra Strength] 500 mg tablet 1,000 mg PO QID PRN (Reason: fever or pain) Qty: 30 0RF ibuprofen 800 mg tablet 800 mg PO Q8H PRN (Reason: pain) Qty: 30 0RF ibuprofen 800 mg tablet 800 mg PO TID PRN (Reason: pain) Qty: 30 0RF benzonatate 100 mg capsule 100 mg PO TID Qty: 14 0RF ibuprofen 600 mg tablet 600 mg PO Q6H Qty: 30 0RF Referrals: Marly ([facility]),Barbara, HEALTH AND SAFETY DIRECTOR-C [Primary Care Provider] - In 1 week Problem List Clinical Impression: Lower back pain, Urinary tract infection, DDD (degenerative disc disease), lumbar Patient/Caregiver Discharge Instructions Education Materials: Urinary Tract Infections in Women, Common Spine and Disk Problems, ED Back Care Tips, ED Degenerative Disk Disease Additional Instructions: Follow-up with your primary care physician in 2 days for reevaluation and to be referred to a neurosurgeon for further evaluation and treatment of DDD lumbar for possible MRI to rule out herniated disc worsening symptoms or any emergent concerns such as numbness weakness tingling sensation incontinence to urine or stool call 911 or go to the nearest emergency room ice pack and warm compress as needed for pain finish the course of antibiotic increase water intake keep hydrated Print Language: Lao Stand Alone Forms: Laverne Award Info., Patient Portal Info Letter PA/HEALTH AND SAFETY DIRECTOR Supervising Physician PA/HEALTH AND SAFETY DIRECTOR Supervising Physician: dr cornejo
[2025-04-26 12:25] LABS: HCG Qualitative,Urine Negative
[2025-04-26 12:31] LABS: Bacteria,Urine 1+; Bilirubin,Urine Negative (Negative); Blood,Urine 1+ (Negative); Color,Urine Lt-Yellow (Lt Yel-Yel); Glucose, Urine Negative (Negative); Ketones,Urine Negative (Negative); Leukocyte Esterase,Urine Positive (Negative); Nitrite,Urine Negative (Negative); Protein,Urine Negative (Neg - Trace); RBC,Urine 3 /hpf (0-3); Specific Gravity,Urine 1.021 (1.001-1.035); Squamous Epithelial Cell,Urine 14 /hpf (0-5); Urobilinogen,Urine Negative mg/dL (0.0-1.0); WBC,Urine 13 /hpf (0-5)
[2025-04-26 12:34] LABS: Clarity,Urine Cloudy (Clear/Hazy)
[2025-04-26] MEDS: DEXAMETHASONE SOD PHOS INJ 10 MG/ML VIAL IM (13:35)
[2025-04-26] MEDS: KETOROLAC INJ 60 MG/2 ML VIAL 30 MG IM (13:36)
== END 2025-04-26 13:45 | disposition home or self-care (01) ==
PROVIDERS: Nurse Practitioner Family; Emergency Provider Emergency Medicine; PCP Nurse Practitioner Primary Care
DX: M51.360 Other intervertebral disc degeneration, lumbar region with discogenic back pain only (principal); N39.0 Urinary tract infection, site not specified
CPT/HCPCS: 72100; 81001; 81025; 96372; 99283; J1100; J1885

== ENCOUNTER → 2025-05-25 | Outpatient (CLI) | payer MEDICAID, SELFPAY ==
--- NOTE | 2025-05-25 15:30 | XR_ITS ---
Examination: Breast ultrasound complete, bilateral Date and time of exam: May 17, 2025 1507 hours INDICATIONS: Mammogram February 11, 2025 10 mm focal asymmetry upper inner right breast Technique: Real-time grayscale ultrasonographic imaging bilateral breasts, including all 4 quadrants as well as nipple retroareolar and axillary regions. Findings: Sonographic images right breast 5:00 cyst 8 x 7 mm No solid nodules Sonographic images left breast No cystic or solid mass IMPRESSION: BI-RADS Category 2: Benign findings
== END | disposition home or self-care (01) ==
PROVIDERS: PCP Nurse Practitioner Primary Care; Referring Provider Nurse Practitioner Primary Care; Visit Provider Nurse Practitioner Primary Care
DX: R92.331 Mammographic heterogeneous density, right breast (principal)
CPT/HCPCS: 76641

== ENCOUNTER → 2025-05-27 | Outpatient (CLI) | payer MEDICAID, SELFPAY ==
--- NOTE | 2025-05-27 13:30 | XR_ITS ---
Examination: Diagnostic digital mammography, unilateral, right Computer aided detection 3-D breast Tomosynthesis, unilateral Date and time of exam: May 27, 2025 1308 hours INDICATIONS: Mammogram February 11, 2025 10 mm focal asymmetry inner right breast Technique: Nonmagnified MLO, CC views of the right breast have been obtained, reconstructed from 3-D Tomosynthesis images. R2 computer aided detection program utilized for evaluation of suspicious masses and/or abnormal calcifications. 3-D Tomosynthesis images obtained. Findings: The breast is heterogeneously dense, which may obscure small masses No suspicious nodule is depicted on the spot compression views Impression: BI-RADS category 2: Benign findings Return to yearly follow-up mammography
== END | disposition home or self-care (01) ==
LOC: CDIM 12:58
PROVIDERS: Referring Provider Nurse Practitioner Primary Care; Visit Provider Nurse Practitioner Primary Care
DX: R92.321 Mammographic fibroglandular density, right breast (principal)
CPT/HCPCS: 77061; 77065; G0279